=== PATIENT | male | born 1960 | race Two or more races ===

== ENCOUNTER 2021-10-07 11:33 | Outpatient (CLI) | payer OTHER | END 2021-10-07 14:34 | disposition home or self-care (01) | LOC: SONOGRAMA 11:33 | PROVIDERS: ATTEND Pathology Anatomic Pathology & Clinical Pathology | DX: D34 Benign neoplasm of thyroid gland (principal) ==

== ENCOUNTER 2021-10-13 07:08 | Outpatient (CLI) | payer OTHER | END 2021-10-13 07:18 | disposition home or self-care (01) | LOC: RX STUDY 07:08 | PROVIDERS: ATTEND Internal Medicine Gastroenterology | DX: R10.33 Periumbilical pain (principal); R10.13 Epigastric pain; R19.7 Diarrhea, unspecified; R63.0 Anorexia ==